=== PATIENT | male | born 1990 | race Caucasian/White ===

== ENCOUNTER 2017-07-20 20:35 | Emergency (ER) | payer OTHER ==
[~2017-07-20] VITALS: Ht 177.8 cm; Wt 126.0 kg
[~2017-07-20 20:35] MED LIST: Z.0.NO CURRENT MEDS
[2017-07-20 20:37] VITALS: BP 122/78; PULSE 96; RESP 20; TEMP 98.9; O2SAT 96
--- NOTE | 2017-07-20 21:12 | PD ---
HPI Chief Complaint: Bite or Sting Time Seen by Provider: 20:52 Travel History International Travel<30 days: No Contact w/Intl Traveler<30days: No Traveled to known affect area: No History of Present Illness HPI This patient complains of dog bite. 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 Paramedics responded and animal control has started a formal inquiry. The symptoms are mild. Duration 1 hour. No alleviating factors he reports tetanus not up-to-date [facility] Past Medical History Diminished Hearing: No Gastrointestinal Disorders: Yes (ibs) Immunizations Current: Yes Tetanus Vaccination: > 5 Years Influenza Vaccination: No Social History Alcohol Use: No Tobacco Use: Yes (vapes) Substance Use: No Allergies-Medications (Allergen,Severity, Reaction): Coded Allergies: No Known Allergies (Verified Adverse Reaction, Unknown, 07/20/17) Reported Meds & Prescriptions Reported Meds & Active Scripts Active No Active Prescriptions or Reported Medications Review of Systems General / Constitutional: No: Fever HENT: No: Headaches Cardiovascular: No: Chest Pain or Discomfort Respiratory: No: Cough Physical Exam Narrative Psych: Normal mood and affect. Normal insight and judgment. SKIN: Focused skin assessment reveals no rash or ulcers. Skin is warm and dry. Palpation shows no induration or nodules. Right shoulder: Patient has a bit of bruising around the region. There is a approximately 1 cm shallow wound. No deep punctures. Data Data Last Documented VS Vital Signs Date Time Temp Pulse Resp B/P (MAP) Pulse Ox O2 Delivery O2 Flow Rate FiO2 07/20/17 20:37 98.9 96 20 122/78 (93) 96 Orders Orders Tetanus/Diphtheria Tox Adult (Tetanus/Di (07/20/17 21:15) Wound Care (07/20/17 21:01) MDM Medical Decision Making Medical Screen Exam Complete: Yes Emergency Medical Condition: Yes Medical Record Reviewed: Yes Differential Diagnosis Dog bite, abrasion, contusion Narrative Course I have reviewed the patient's electronic medical record. The area was cleaned thoroughly Steri-Strips applied for loose closure. I explained to him that tight closure with sutures or Dermabond was not indicated and likely to promote infection chance. Tetanus booster updated I prescribed him Augmentin Will follow-up with animal control determine whether rabies shots indicated I filled out his workers comp paperwork Diagnosis Primary Impression: Dog bite Qualified Codes: W54.0XXA - Bitten by dog, initial encounter Additional Instructions: Checked the wound for signs of infection Follow-up with Worker's Comp. M.D. Check in with animal control Med/Other Pt SpecificInfo: Prescription(s) given Scripts No Active Prescriptions or Reported Meds Disposition: 01 DISCHARGE HOME Condition: Stable Jared Paiz MD Jul 20, 2017 21:12
[2017-07-20] MEDS ORDERED: AUGM875T3 PO (21:13)
[2017-07-20] MEDS ORDERED: TETANUS/DIPHTHERIA TOXOID ADULT 0.5 ML VIAL IM ONE (21:15)
== END 2017-07-20 21:20 | disposition home or self-care (01) ==
LOC: PHEFT 20:35
DX: S41.051A Open bite of right shoulder, initial encounter (principal); W54.0XXA Bitten by dog, initial encounter; Y99.0 Civilian activity done for income or pay; Z23 Encounter for immunization
CPT/HCPCS: 90471; 90714